=== PATIENT | female | born 1960 | race Caucasian/White ===

== ENCOUNTER 2018-03-07 07:41 | Day surgery (SDC) | payer OTHER ==
[2018-03-07] MEDS ORDERED: LIDOCAINE 4% SOLUTION 50 ML BTL (10:37)
[2018-03-07] MEDS ORDERED: FENTAnyl 50 MCG/ML VIAL ×2 (10:53→12:53)
[2018-03-07] MEDS ORDERED: MIDAZOLAM 1 MG/ML 2 ML INJ ×2 (10:53)
== END 2018-03-07 16:29 | disposition home or self-care (01) ==
LOC: GIL 07:41
DX: R19.5 Other fecal abnormalities (principal); K29.50 Unspecified chronic gastritis without bleeding; K64.4 Residual hemorrhoidal skin tags; K57.90 Diverticulosis of intestine, part unspecified, without perforation or abscess without bleeding; K25.9 Gastric ulcer, unspecified as acute or chronic, without hemorrhage or perforation; I10 Essential (primary) hypertension
CPT/HCPCS: 43239; 88305; 88312